=== PATIENT | female | born 2000 | race Caucasian/White ===

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

== ENCOUNTER 2021-05-13 08:44 | Day surgery (SDC) | payer OTHER ==
[~2021-05-13] VITALS: Ht 167.6 cm; Wt 93.8 kg
[~2021-05-13 08:44] MED LIST changes: +Permethrin60 GM TOP
== END 2021-05-13 10:44 | disposition home or self-care (01) ==
LOC: ORSCSDS 08:44
PROVIDERS: Internal Medicine Gastroenterology
PROC: 0DJD8ZZ Inspection of Lower Intestinal Tract, Via Natural or Artificial Opening Endoscopic (ICD-10-PCS; principal; 2021-05-13 10:15)
DX: R19.4 Change in bowel habit (principal); Z80.0 Family history of malignant neoplasm of digestive organs; K57.30 Diverticulosis of large intestine without perforation or abscess without bleeding; K64.8 Other hemorrhoids; N91.2 Amenorrhea, unspecified; F32.9 Major depressive disorder, single episode, unspecified; F17.210 Nicotine dependence, cigarettes, uncomplicated
CPT/HCPCS: J2250; J2704; J7120

== ENCOUNTER → 2021-09-02 | Outpatient (CLI) | payer OTHER ==
[2021-09-05 05:10] LABS: GONOCOCCUS BY NAA Negative (Negative); TRICH VAG BY NAA Negative (Negative)
[2021-09-07 14:04] LABS: CHLAMYDIA BY NAA Positive (Negative)
== END ==
LOC: LAB SHORT 18:28 → LAB 18:28
PROVIDERS: Physician Assistant
DX: N39.0 Urinary tract infection, site not specified (principal); Z20.9 Contact with and (suspected) exposure to unspecified communicable disease
CPT/HCPCS: 87086; 87491; 87591; 87661

== ENCOUNTER → 2021-10-15 | Outpatient (CLI) | payer OTHER | END | disposition home or self-care (01) | LOC: LAB SHORT 16:49 | DX: R19.7 Diarrhea, unspecified (principal) | CPT/HCPCS: 87177; 87209 ==

== ENCOUNTER → 2022-04-30 | Outpatient (CLI) | payer OTHER | END | disposition home or self-care (01) | LOC: LAB 10:25 → LAB SHORT 10:25 | DX: L03.116 Cellulitis of left lower limb (principal) | CPT/HCPCS: 87070; 87077; 87186; 87205 ==

== ENCOUNTER → 2022-07-26 | Outpatient (CLI) | payer OTHER | END | disposition home or self-care (01) | LOC: LAB 13:27 → LAB SHORT 13:27 | DX: N39.0 Urinary tract infection, site not specified (principal) | CPT/HCPCS: 87086 ==

== ENCOUNTER → 2023-04-11 | Outpatient (CLI) | payer OTHER ==
[~2023-04-11] MED LIST changes: +CEFP200 PO; +HYDR1TAB94 PO; +TAMS.4ER PO
[2023-04-13 03:10] LABS: CHLAMYDIA TRACHOMATIS, NAA Negative (Negative)
== END | disposition home or self-care (01) ==
LOC: LAB SHORT 13:52 → LAB 13:52
PROVIDERS: Advanced Practice Midwife
DX: Z11.3 Encounter for screening for infections with a predominantly sexual mode of transmission (principal)
CPT/HCPCS: 87491; 87591

== ENCOUNTER → 2025-08-07 | Outpatient (CLI) | payer OTHER | LOC: LAB SHORT 12:03 → LAB 12:03 | DX: R30.0 Dysuria (principal) | CPT/HCPCS: 87086 ==

== ENCOUNTER → 2025-09-12 | Outpatient (CLI) | payer OTHER | LOC: LAB 11:20 → LAB SHORT 11:20 | DX: O09.93 Supervision of high risk pregnancy, unspecified, third trimester (principal) | CPT/HCPCS: 87081; 87147; 87150; 87184 ==

== ENCOUNTER 2025-09-27 13:11 | Inpatient (IN) | payer OTHER ==
[~2025-09-27] VITALS: Ht 162.6 cm; Wt 112.3 kg
[2025-09-27] VITALS (24 sets, daily range): BP systolic 120–165; BP diastolic 59–101
[2025-09-27] MEDS ORDERED: FentaNYL Citrate 50 MCG/ML 2 ML Injection IV PRN (14:35)
[2025-09-27] MEDS ORDERED: OXYTOCIN/RINGER'S LACTATE 500 ML IV PRN (14:40)
[2025-09-27] MEDS ORDERED: Carboprost Tromethamine 250 MCG/ML 1ML Amp IM PRN (14:40)
[2025-09-27] MEDS ORDERED: OXYTOCIN/RINGER'S LACTATE 500 ML IV SCH (14:40)
[2025-09-27] MEDS ORDERED: Tranexamic Acid 100 ML IV SCH (14:40)
[2025-09-27] MEDS ORDERED: ePHEDrine Sulfate 50 MG/ML 1ML Injection XX PRN (14:40)
[2025-09-27] MEDS ORDERED: FentaNYL 2mcg/ml-Bup 0.1% Epd 250 ML EPI PRN (14:40)
[2025-09-27] MEDS ORDERED: Methylergonovine Maleate 0.2MG / ML 1ML Amp IM PRN (14:40)
[2025-09-27] MEDS ORDERED: Oxytocin 10 Unit / ML Vial IM PRN (14:40)
[2025-09-27] MEDS ORDERED: Ondansetron HCl 2 MG / ML 2ML Vial IV PRN ×2 (14:50→22:50)
[2025-09-27 15:05] LABS: BASOPHILS ABSOLUTE AUTO 0.04 K/mm3 (0.00-0.23); BASOPHILS PERCENT AUTO 0 % (0-2); EOSINOPHILS ABSOLUTE AUTO 0.03 K/mm3 (0.00-0.68); EOSINOPHILS PERCENT AUTO 0 % (0-6); Hematocrit 39.4 % (33.0-51.0); Hemoglobin 13.7 g/dL (11.5-16.0); IMMATURE GRAN ABSOLUTE AUTO 0.09 K/mm3 (0.00-0.10); IMMATURE GRAN PERCENT AUTO 1 % (0-1); LYMPHOCYTES ABSOLUTE AUTO 2.23 K/mm3 (0.84-5.20); LYMPHOCYTES PERCENT AUTO 20 % (21-46); MONOCYTES ABSOLUTE AUTO 0.45 K/mm3 (0.16-1.47); MONOCYTES PERCENT AUTO 4 % (4-13); Mean Corpuscular HGB Conc 34.8 g/dL (31.5-36.5); Mean Corpuscular Volume 89 fL (80-100); NEUTROPHILS ABSOLUTE AUTO 8.19 K/mm3 (1.96-9.15); NEUTROPHILS PERCENT AUTO 74 % (41-73); NRBC ABSOLUTE 0.00 K/mm3 (0.00-0.02); NRBC Auto 0.0 /100 WBC (0.0-0.2); Platelet Count 255 K/mm3 (150-400); RDW Coefficient Variation 13.5 % (11.7-14.2); RDW Standard Deviation 43.8 fL (35.1-46.3)
[2025-09-27] MEDS ORDERED: VALA500 PO (15:20)
[2025-09-27] MEDS ORDERED: Vancomycin HCL 2,000 MG in NS 520 ML IV ONE (15:45)
[2025-09-27] MEDS ORDERED: FentaNYL Citrate 50 MCG/ML 2 ML Injection ONE (22:27)
[2025-09-27] MEDS ORDERED: Metoclopramide HCl 5MG / ML 2ML Vial IV PRN (22:50)
[2025-09-27] MEDS ORDERED: ePHEDrine Sulfate 50 MG/ML 1ML Injection IV PRN (22:50)
[2025-09-27] MEDS ORDERED: DiphenhydrAMINE HCl 50 MG/ML 1ML Vial IV PRN (22:50)
[2025-09-28] VITALS (38 sets, daily range): BP systolic 115–147; BP diastolic 57–86
[2025-09-28 10:54] LABS: Creatinine, Urine Random 136.0 mg/dL (27.00-270.00); Protein, Urine Random 131.1 mg/dL (0.0-11.9); Protein/Creat Ratio, Ur Random 1.0
[2025-09-28] MEDS ORDERED: Rho(D) Immune Globulin 300 MCG / SYR IM ONE (11:25)
[2025-09-28] MEDS ORDERED: Carboprost Tromethamine 250 MCG/ML 1ML Amp IM PRN (11:30)
[2025-09-28] MEDS ORDERED: OXYTOCIN/RINGER'S LACTATE 500 ML IV SCH (11:30)
[2025-09-28] MEDS ORDERED: Benzocaine Topical Anesthetic Spray 60GM TOP PRN (11:30)
[2025-09-28] MEDS ORDERED: FLU VACC TS2025-26(6MOS UP)/PF 45 MCG/0.5 ML SYRINGE IM SCH (11:35)
[2025-09-28] MEDS ORDERED: Witch Hazel/Glycerin PADS TOP PRN (11:35)
[2025-09-28] MEDS ORDERED: Ketorolac Tromethamine 30mg Vial IV SCH (12:00)
[2025-09-28 12:05] LABS: BASOPHILS ABSOLUTE AUTO 0.02 K/mm3 (0.00-0.23); BASOPHILS PERCENT AUTO 0 % (0-2); EOSINOPHILS ABSOLUTE AUTO 0.00 K/mm3 (0.00-0.68); EOSINOPHILS PERCENT AUTO 0 % (0-6); Hematocrit 35.3 % (33.0-51.0); Hemoglobin 12.3 g/dL (11.5-16.0); IMMATURE GRAN ABSOLUTE AUTO 0.05 K/mm3 (0.00-0.10); IMMATURE GRAN PERCENT AUTO 0 % (0-1); LYMPHOCYTES ABSOLUTE AUTO 1.07 K/mm3 (0.84-5.20); LYMPHOCYTES PERCENT AUTO 8 % (21-46); MONOCYTES ABSOLUTE AUTO 0.32 K/mm3 (0.16-1.47); MONOCYTES PERCENT AUTO 2 % (4-13); Mean Corpuscular HGB Conc 34.8 g/dL (31.5-36.5); Mean Corpuscular Volume 89 fL (80-100); NEUTROPHILS ABSOLUTE AUTO 12.76 K/mm3 (1.96-9.15); NEUTROPHILS PERCENT AUTO 90 % (41-73); NRBC ABSOLUTE 0.00 K/mm3 (0.00-0.02); NRBC Auto 0.0 /100 WBC (0.0-0.2); Platelet Count 217 K/mm3 (150-400); RDW Coefficient Variation 13.2 % (11.7-14.2); RDW Standard Deviation 43.3 fL (35.1-46.3)
[2025-09-28 12:31] LABS: Alanine Aminotransfer (ALT/SGP 10.0 U/L (12-78); Albumin, Blood 2.3 g/dL (3.4-5.0); Albumin/Globulin Ratio 0.6 (0.8-1.8); Anion Gap 11.0 mmol/L (3-11); Aspartate Aminotrans (AST/SGOT 14.0 U/L (12-37); Bilirubin, Total 0.4 mg/dL (0.1-1.0); Blood Urea Nitrogen 8.0 mg/dL (8-24); CO2, Blood 20.0 mmol/L (21-32); Calcium, Blood 9.0 mg/dL (8.5-10.1); Chloride, Blood 111.0 mmol/L (98-108); Creatinine, Blood 0.6 mg/dL (0.40-1.00); Globulin, Blood 3.6 g/dL (2.2-4.0); Glucose, Blood 143.0 mg/dL (70-99); Potassium, Blood 3.6 mmol/L (3.5-5.5); Sodium, Blood 138.0 mmol/L (136-145); Total Protein, Blood 5.9 g/dL (6.4-8.2)
[2025-09-28] MEDS ORDERED: Ketorolac Tromethamine 30mg Vial IV PRN (20:10)
[2025-09-29] VITALS (7 sets, daily range): BP systolic 132–148; BP diastolic 61–84
--- NOTE | 2025-09-29 02:10 | NUR ---
THIS RN TALKED TO ABOUT THE TREND OF PTS BLOOD PRESSURES THROUGHOUT THIS SHIFT SO FAR. REVIEWS THE PTS BLOOD PRESSURES FROM THIS SHIFT. PER , PT HAS GESTATION HYPERTENSION, THESE BLOOD PRESSURES ARE ANTICIPATED FOR THIS PT. NO NEW ORDERS AT THIS TIME.
[2025-09-29] MEDS ORDERED: Prenatal Vit/FE Fumarate/FA 1 Tab PO SCH (09:00)
[2025-09-29] MEDS ORDERED: IBUP800 PO (15:06)
--- NOTE | 2025-09-29 16:51 | NUR ---
BOARDER PLAN TO PUT TO BOARDER STATUS AFTER DINNER TRAY COMES. MOTHER CARING FOR SELF INDEPENDANTLY. VERBALIZES UNDERSTANDING OF DC INSTRUCTIONS AND FOLLOW UP APPOINTMENTS. NO QUESTIONS OR CONCERNS. STABLE. LORNE PHILLIPS. DR ROCHA AWARE OF BOARDERLINE BPS. S/S DISCUSSED AND WILL CALL IF ANY CHANGES.
--- NOTE | 2025-10-01 08:41 | NUR ---
COPIED FROM [facility] - UNDONE ERROR
== END 2025-09-29 18:27 | disposition home or self-care (01) | DRG 806 ==
LOC: OBS 13:11 → BC 14:21
PROVIDERS: ADMIT Obstetrics & Gynecology
PROC: 3E02340 Introduction of Influenza Vaccine into Muscle, Percutaneous Approach (ICD-10-PCS; 2025-09-27)
PROC: 3E03329 Introduction of Other Anti-infective into Peripheral Vein, Percutaneous Approach (ICD-10-PCS; 2025-09-27)
PROC: 10E0XZZ Delivery of Products of Conception, External Approach (ICD-10-PCS; principal; 2025-09-28)
PROC: 0KQM0ZZ Repair Perineum Muscle, Open Approach (ICD-10-PCS; 2025-09-28)
PROC: 3E0R3BZ Introduction of Anesthetic Agent into Spinal Canal, Percutaneous Approach (ICD-10-PCS; 2025-09-28)
PROC: 00HU33Z Insertion of Infusion Device into Spinal Canal, Percutaneous Approach (ICD-10-PCS; 2025-09-28)
PROC: 3E0234Z Introduction of Serum, Toxoid and Vaccine into Muscle, Percutaneous Approach (ICD-10-PCS; 2025-09-28)
DX: O42.12 Full-term premature rupture of membranes, onset of labor more than 24 hours following rupture (principal); O71.4 Obstetric high vaginal laceration alone; Z37.0 Single live birth; O98.32 Other infections with a predominantly sexual mode of transmission complicating childbirth; Z3A.38 38 weeks gestation of pregnancy; O99.214 Obesity complicating childbirth; O69.81X0 Labor and delivery complicated by cord around neck, without compression, not applicable or unspecified; A60.00 Herpesviral infection of urogenital system, unspecified; O99.824 Streptococcus B carrier state complicating childbirth; O13.4 Gestational [pregnancy-induced] hypertension without significant proteinuria, complicating childbirth; Z87.891 Personal history of nicotine dependence; Z88.0 Allergy status to penicillin
CPT/HCPCS: 36415; 51702; 80053; 82570; 84156; 85025; 87210; 90707; 99214; A9270; J1885; J2590; J3373; J7040; J7050; J7120; P9612